=== PATIENT | male | born 2000 | race African-American/Black ===

== ENCOUNTER 2023-10-25 15:32 | Emergency (ER) | payer MEDICAID ==
[~2023-10-25] VITALS: Ht 185.4 cm; Wt 90.0 kg
[2023-10-25] MEDS: PROPOFOL 200MG/20ML VIAL IV ONE (16:26)
[2023-10-25] MEDS: KETAMINE HCL 50 MG/ML 10ML IV ONE (16:27)
[2023-10-25] MEDS: ACETAMINOPHEN 325MG TABLET PO ONE (17:34)
[2023-10-25] MEDS: ONDANSETRON HCL 4MG/2ML INJ IV ONE (18:18)
[2023-10-25 18:19] VITALS: O2SAT 98
[2023-10-25 19:52] VITALS: BP 130/80; PULSE 90; RESP 20; TEMP 98.8
== END 2023-10-25 19:49 | disposition home or self-care (01) ==
LOC: ER 15:32
DX: S43.025A Posterior dislocation of left humerus, initial encounter (principal); X58.XXXA Exposure to other specified factors, initial encounter; Y93.89 Activity, other specified; Y92.89 Other specified places as the place of occurrence of the external cause; Y99.8 Other external cause status
CPT/HCPCS: 99285; 23650; 96374; 73030; 99152; J3490; J2405; J2704; L3670